=== PATIENT | female | born 1960 | race African-American/Black ===

== ENCOUNTER 2016-11-17 13:59 | Inpatient (IN) ==
[2016-11-17 15:09] LABS: BILIRUBIN URINE NEGATIVE (NEGATIVE); BLOOD URINE 2+ (NEGATIVE); CLARITY SL. CLOUDY (CLEAR); COLOR YELLOW; GLUCOSE URINE NEGATIVE (NEGATIVE); LEUKOCYTES URINE 1+ (NEGATIVE); NITRITE URINE NEGATIVE (NEGATIVE); PH URINE 6.5; PROTEIN URINE TRACE mg/dL (NEGATIVE); UROBILINOGEN URINE 4+(12 mg/dL)
[2016-11-17 15:29] LABS: URINE EPITHELIAL CELLS >10 /HPF (<10); URINE RBC <10 /HPF (<10); URINE WBC <10 /HPF (<10)
[2016-11-17 15:30] LABS: URINE CAST NONE SEEN /LPF; URINE CRYSTAL NONE SEEN /HPF; URINE CULTURE PL NEEDED? YES; URINE SOURCE CLEAN CATCH
--- NOTE | 2016-11-17 15:32 | Diag Imaging Result Doc PS360 ---
EXAM: CHEST-2 VIEWS - 11/17/2016 HISTORY: fever TECHNIQUE: Chest two views COMPARISON: 09/16/2015 FINDINGS: Heart size is normal. There is slight prominence of infrahilar markings on the left. There is no dense consolidation, pleural effusion, or pneumothorax identified. IMPRESSION: Slight prominence of infrahilar markings on the left. Minimal infiltrate at this location cannot be excluded. No other acute changes. Electronically signed by Karsten Choudhary 11/17/2016 3:29 PM
[2016-11-17 15:37] LABS: ALBUMIN 3.9 g/dL (3.5-5.0); CALCIUM 8.6 mg/dL (8.8-10.2); POTASSIUM 3.5 mmol/L (3.5-5.1); TOTAL BILIRUBIN 1.1 mg/dL (0.20-1.00); TOTAL PROTEIN 7.8 g/dL (6.3-8.3)
[2016-11-17 15:57] LABS: MANUAL DIFF NEEDED? NO
[2016-11-17 16:00] LABS: BASO% 0.1 % (0.0-0.8); EOS# 0.33 X1000 (0.0-0.7); HEMATOCRIT 36.6 % (37.0-47.0); HEMOGLOBIN 11.8 g/dL (12.0-16.0); IMM GRAN# 0.03 X1000 (0.0-0.04); IMM GRAN% 0.3 % (0.0-0.5); LYMPH# 1.66 X1000 (1.2-3.4); MCH 27.3 PG (27-31); MCHC 32.2 g/dL (33-37); MCV 84.7 FL (81-99); MONO% 5.4 % (1.7-9.3); MPV 12.3 FL (7.4-10.4); NEUT% 76.2 % (42.2-75.2); PLT 180 X1000 (130-400); RBC 4.32 XMIL (4.2-5.4)
[2016-11-17] MEDS ORDERED: DOXYCYCLINE 100 MG in NS 250 ML IV ONE (16:59)
--- NOTE | 2016-11-17 17:14 | PROVIDER DOCUMENTATION ---
This chart was entered by Alysia Santos Scribe, acting as scribe for Kim Sultana CRNP. HPI-Rash/Wound/ReCheck - General Chief Complaint: Return/Recheck Stated Complaint: INSECT BITE/STING Time Seen by Provider: 11/17/16 14:01 Source: patient Allergies/Adverse Reactions: Allergies Allergy/AdvReac Type Severity Reaction Status Date / Time Penicillins Allergy DIZZINESS Verified 09/04/15 06:58 Home Medications: Home Medication List Medication Instructions Recorded Confirmed Last Taken Type Sulfamethoxazole/Tmp D.s. [Sept 1 tab PO BID 11/17/16 11/17/16 Unknown History Ds] - History of Present Illness-Dermatology Nature of Presenting Problem: 56 yo F presents to the ER after being bit by a brown recluse spider on her stomach x2 days ago, was seen at [facility] and given Bactrim. Today went to her PCP and he advised her to come here because she now has an area of cellulitis to her R forearm, denies being bit there. Pt has taken 2 doses of Bactrim. Location: reports: upper extremity, torso Quality: reports: painful Onset/Duration: reports: 2 days ago Context/Associated Symptoms: reports: spider bite Identifiable cause?: Yes Recently seen or treated by another doctor?: Yes Review of Systems - Adult - REVIEW OF SYSTEMS - ADULT Constitutional: denies: chills, fever Eyes: reports: no symptoms reported Ears, Nose, Mouth & Throat: reports: no symptoms reported Cardiovascular: denies: chest pain, palpitations Respiratory: denies: cough, shortness of breath Gastrointestinal: denies: diarrhea, nausea, vomiting Genitourinary: reports: no symptoms reported Musculoskeletal: reports: no symptoms reported Integumentary: reports: see HPI. denies: itching Neurological: reports: no symptoms reported Psychiatric: reports: no symptoms reported Endocrine: reports: no symptoms reported Hematologic/Lymphatic: reports: no symptoms reported Allergic/Immunologic: reports: no symptoms reported All Other Systems: Reviewed and Negative Past History - Adult - PAST MEDICAL HISTORY-ADULT Review of Records: reports: Nursing Assessment Review, Medications Reviewed - IMMUNIZATION STATUS Childhood Immunizations: See Nurse Assessment Flu Vaccine: See Nurse Assessment Physical Exam-General - PHYSICAL EXAM-ADULT Initial Vital Signs Reviewed: Yes - CONSTITUTIONAL General Appearance: alert, no apparent distress - EYES Eyes: PERRL/EOMI, pink conjunctivae - HEAD, EARS, NOSE, MOUTH & THROAT HENMT: normocephalic/atraumatic, normal ENT inspection - NECK Neck: supple, normal inspection - RESPIRATORY Respiratory: no respiratory distress, no accessory muscle use - CARDIOVASCULAR Cardiovascular: normal peripheral pulses, regular rate, rhythm - MUSCULOSKELETAL Back Exam: no CVA tenderness, no vertebral tenderness Extremity: normal gait, normal inspection - SKIN Integumentary: warm/dry, erythema (R forearm, stomach where she was bit), tenderness (R forearm, stomach where she was bit), warm (R forearm, stomach where she was bit) - NEUROLOGIC Neurologic: grossly normal, no motor/sensory deficits - PSYCHIATRIC Psych/Mental Status: normal mood/affect, normal thought content, normal thought process, oriented x 3 Progress - PLAN OF CARE/RESULTS Progress/Plan/Lab Results: Vital Signs - 8 hr 11/17/16 14:05 Temperature 99 F Pulse Rate 91 H Respiratory Rate 18 Blood Pressure 126/79 O2 Sat by Pulse Oximetry 100 Laboratory Results - last 24 hr 11/17/16 11/17/16 11/17/16 14:55 15:00 15:53 WBC 11.08 H RBC 4.32 Hgb 11.8 L Hct 36.6 L MCV 84.7 MCH 27.3 MCHC 32.2 L RDW Std Deviation 13.9 Plt Count 180 MPV 12.3 H Immature Gran % (Auto) 0.3 Neut % (Auto) 76.2 H Lymph % (Auto) 15.0 L Bowman % (Auto) 5.4 Eos % (Auto) 3.0 Baso % (Auto) 0.1 Immature Gran # (Auto) 0.03 Neut # (Auto) 8.45 H Lymph # (Auto) 1.66 Bowman # (Auto) 0.60 H Eos # (Auto) 0.33 Baso # (Auto) 0.01 Sodium 134 L Potassium 3.5 Chloride 98 Carbon Dioxide 22 L Anion Gap 14 BUN 15 Creatinine 1.0 H Estimated GFR/1.73 m2 58 BUN/Creatinine Ratio 15 Glucose 93 Calculated Osmolality 269 Calcium 8.6 L Total Bilirubin 1.10 H AST 37 H ALT 28 Alkaline Phosphatase 168 H Total Protein 7.8 Albumin 3.9 Globulin 4.0 Albumin/Globulin Ratio 1.0 Plasma Lactate Urine Source CLEAN CATCH Urine Color YELLOW Urine Clarity SL. CLOUDY A Urine pH 6.5 Ur Specific [place] 1.020 Urine Protein TRACE A Urine Ketones TRACE Urine Blood 2+ A Urine Nitrite NEGATIVE Urine Bilirubin NEGATIVE Urine Urobilinogen 4+(12 mg/dL) Urine Microscopic RBC <10 Urine WBC 1+ A Urine Microscopic WBC <10 Ur Epithelial Cells >10 A Urine Crystals NONE SEEN Urine Bacteria 1+ Urine Casts NONE SEEN Urine Yeast NONE SEEN Urine Glucose NEGATIVE 11/17/16 15:53 WBC RBC Hgb Hct MCV MCH MCHC RDW Std Deviation Plt Count MPV Immature Gran % (Auto) Neut % (Auto) Lymph % (Auto) Bow[place] % (Auto) Eos % (Auto) Baso % (Auto) Immature Gran # (Auto) Neut # (Auto) Lymph # (Auto) Bowman # (Auto) Eos # (Auto) Baso # (Auto) Sodium Potassium Chloride Carbon Dioxide Anion Gap BUN Creatinine Estimated GFR/1.73 m2 BUN/Creatinine Ratio Glucose Calculated Osmolality Calcium Total Bilirubin AST ALT Alkaline Phosphatase Total Protein Albumin Globulin Albumin/Globulin Ratio Plasma Lactate 1.9 Urine Source Urine Color Urine Clarity Urine pH Ur Specific [place] Urine Protein Urine Ketones Urine Blood Urine Nitrite Urine Bilirubin Urine Urobilinogen Urine Microscopic RBC Urine WBC Urine Microscopic WBC Ur Epithelial Cells Urine Crystals Urine Bacteria Urine Casts Urine Yeast Urine Glucose Orders Category Date Time Status Admit - [facility] Routine AdmDCTranf 11/17/16 17:05 Ordered Activity - Up Ad Karoline ORDERED Care 11/17/16 17:05 Active Saline Loc NOW Care 11/17/16 14:34 Active Vital Signs Order ROUTINE Care 11/17/16 17:05 Active Regular Diet Diet 11/17/16 17:09 Active CHEST-2 VIEWS [RAD] Stat Exams 11/17/16 14:32 Completed BLOOD CULTURE [BLDCUL] Stat Lab 11/17/16 14:31 Ordered CBC WITH ELECTRONIC DIFF [HEME] Stat Lab 11/17/16 15:53 Completed COMPREHENSIVE METABOLIC PANEL [CHEM] Stat Lab 11/17/16 15:00 Completed LACTATE, PLASMA [CHEM] Stat Lab 11/17/16 15:53 Completed UA NIMS W/REFLEX CULT PL [URINALYSIS] Stat Lab 11/17/16 14:55 Completed URINE CULTURE [RM] Routine Lab 11/17/16 15:32 Ordered Doxycycline 100 mg Med 11/17/16 16:59 Active 0.9% Sodium Chloride Inj [Ns] 250 ml IV NOW Transfer/Admit Order [TRANSFER] Routine Transfer 11/17/16 17:10 Ordered Result Diagrams: 11/17/16 15:53 11/17/16 15:00 - XRAY 1 XRAY Study: Chest Impression: See EMR Report (slight prominence of infrahilar markings on the left. Minimal infiltrate at the location cannot be excluded. No other acute changes. Per radiologist) - CONSULTS/PCP/HOSPITALIST Notification #1 *Consult/PCP/Hospitalist*: Dr. Wolff Time Discussed: 17:00 Consult Disposition: Admit (cellulitis) Departure - Departure Date of Disposition Decision: 11/17/16 Time of Disposition Decision: 17:13 DIAGNOSIS: Cellulitis Qualifiers: Site of cellulitis: extremity Site of cellulitis of extremity: upper extremity Laterality: unspecified laterality Qualified Code(s): L03.119 - Cellulitis of unspecified part of limb Disposition: HOME 01 Certified Medical Emergency: Urgent Condition: Good Referrals and Follow-Ups: Princess Peralta MD [Primary Care Provider] - - Critical Care Note This patient required my direct & personal management of CC.: No Attestation - Physician/ SUSAN Attestation Patient care was provided by Advanced Practice Provider:: Yes Advanced Practice Provider:: Kim Sultana Advanced Practice Provider documentation review:: The Mid-level provider documentation, treatment plan and medical decision making was reviewed by the physician who agrees with all treatment and medical decision making by the MLP. The physician spent face to face time with patient:: Yes Advanced Practice Provider documentation review:: The physician spent face to face time with this patient and agrees with all MLP documentation, treatment, and medical decision making by the MLP. See provider notes for further information. This chart was documented by the indicated scribe, (Alysia Santos Scribe) and accurately reflects the services I performed and decisions made by me, Kim Sultana CRNP, as attested by the provider's signature.
[2016-11-17] MEDS ORDERED: TYLENOL PO PRN (19:26)
[2016-11-17] MEDS ORDERED: ZOFRAN IV PRN (19:26)
[2016-11-17] MEDS ORDERED: VANCOMYCIN IV PER PHARMACY MISC SCH (19:30)
[2016-11-17] MEDS: NS 1,000 ML IV SCH (20:19)
[2016-11-17] MEDS: VANCOMYCIN 1 GM/NS 1 GM/250 ML IVPB IV SCH (20:38)
[2016-11-17] MEDS: NORCO-5 PO PRN (20:38)
[2016-11-18] MEDS: VANCOMYCIN 1 GM/NS 1 GM/250 ML IVPB IV SCH (00:43)
[2016-11-18] MEDS: DOXYCYCLINE 100 MG in NS 250 ML IV SCH ×2 (05:25→18:09)
[2016-11-18] MEDS: NORCO-5 PO PRN ×3 (05:25→21:15)
[2016-11-18 07:42] LABS: HEMATOCRIT 32.5 % (37.0-47.0); HEMOGLOBIN 10.2 g/dL (12.0-16.0); MCH 26.7 PG (27-31); MCHC 31.4 g/dL (33-37); MCV 85.1 FL (81-99); MPV 13.1 FL (7.4-10.4); RBC 3.82 XMIL (4.2-5.4)
[2016-11-18 08:22] LABS: AGAP 13; ALBUMIN 3.4 g/dL (3.5-5.0); ALKALINE PHOSPHATASE 162 U/L (32-104); BUN 10 mg/dL (8-22); CALCIUM 8.2 mg/dL (8.8-10.2); CHLORIDE 104 mmol/L (98-107); COSMO 276; GOT 33 U/L (10-30); GPT 30 U/L (10-36); POTASSIUM 3.8 mmol/L (3.5-5.1); SODIUM 138 mmol/L (136-145); TCO2 21 mmol/L (25-35); TOTAL PROTEIN 6.2 g/dL (6.3-8.3)
--- NOTE | 2016-11-18 10:31 | PROGRESS NOTE ---
DATE: 11/18/2016 SUBJECTIVE: The patient notes that she is feeling a little bit better. She is still having swelling in her lower extremities. Denies any chest pains or palpitations. She has got a small blister on her upper abdomen. Notes the swelling in her right arm may be a little bit better. OBJECTIVE: Vital Signs: On physical exam, temp 98, pulse 85, blood pressure 99/47, satting 97% on room air. General: Patient is awake, alert. She is currently in no respiratory distress. She is pleasant to talk with. Speech is regular. Memory intact. Neck: Supple. CV: Regular rate. Chest: Relatively clear. Abdomen: Soft. Extremities: Moves all extremities. Skin: She is noted to have a small blister and small erythematous area in her right upper quadrant on her abdomen. She is having some redness from her right wrist to her right elbow; this appears to be less intensity and it is less warmth than it was last night. ASSESSMENT: 1. Insect bite with cellulitis. 2. Pain control. 3. Leukocytosis. 4. Hyponatremia, resolved. 5. Hyperbilirubinemia. PLAN: We will continue patient in the hospital. Continue IV antibiotics. Continue pain control. Further orders as needed. cc: Braulio Wolff MD
--- NOTE | 2016-11-18 10:35 | HISTORY AND PHYSICAL ---
PRIMARY CARE PHYSICIAN: Princess Peralta MD CHIEF COMPLAINT: Spider bite on her stomach 2 days ago and now with erythema to her right forearm. HISTORY OF PRESENTING ILLNESS: This is a 56-year-old female who states that she was bit by a brown recluse spider on her stomach 2 days ago. She went to [facility] and was started on Bactrim. She noticed that she had some redness to her right forearm, so she went to see her primary care physician yesterday who advised her to come to the emergency room for evaluation and treatment of a right forearm cellulitis. It is noted that she took 2 doses of her Bactrim prior to arrival. When she got here, she had a temperature of 99 degrees. White blood cells were 11.08. She was noted to have some erythema and warmth to her right upper abdomen and erythema, edema, and warmth to touch in her right forearm, so she was admitted for further evaluation and treatment. PAST MEDICAL HISTORY: Fibromyalgia. PAST SURGICAL HISTORY: Appendectomy, hysterectomy, bilateral rotator cuff surgery, cholecystectomy, and a left toe nail removal. FAMILY HISTORY: Noncontributory. SOCIAL HISTORY: She currently lives with family. Denied any tobacco, alcohol, or illicit drug use. ALLERGIES: Penicillin. HOME MEDICATIONS: She was only taking the Bactrim that was prescribed 2 days ago and that will be held. LABORATORY DATA: Showed a white blood cell count of 11.08, hemoglobin 11.8, hematocrit 36.6, platelets 180,000. Sodium 134, potassium 3.5, chloride 98, CO2 of 22, BUN of 15, creatinine of 1, glucose 93, total bilirubin of 1.1, AST of 37, ALT 28, alkaline phosphatase 168, plasma lactate of 1.9. Urinalysis was negative. REVIEW OF SYSTEMS: She was positive for a subjective fever, some mild chills. Denied any blurred vision, dizziness, chest pain, coughing, shortness of breath. She was positive for abdominal pain to the site where she was bit, erythema and edema to that area also and to her inner right forearm. Denied any nausea, vomiting, diarrhea, or burning or hurting with urination. PHYSICAL EXAMINATION: VITAL SIGNS: On arrival, she had a temperature of 99 degrees, pulse 91, respirations 18, blood pressure 126/79, saturating 100% on room air. GENERAL: This is a 56-year-old female who is lying in the bed and answers questions appropriately. HEENT: Normocephalic and atraumatic. Pupils are equal, round, reactive to light. Extraocular movements are intact. Oropharynx and nares are clear. NECK: Supple. LUNGS: Clear to auscultation bilaterally with equal lung expansion and chest wall movement. ABDOMEN: Soft. There is tenderness, warmth, and erythema to the right upper quadrant from her recent brown recluse spider bite. Bowel sounds are present x4 quadrants. EXTREMITIES: The patient was noted to have erythema, edema, and warmth to touch to her inner right forearm from the elbow to her wrist. Otherwise, no clubbing, cyanosis, or edema. NEUROLOGICAL: The cranial nerves 2 through 12 are grossly intact. ASSESSMENT: 1. Right upper quadrant abdomen spider bite. 2. Right forearm cellulitis. 3. Leukocytosis. 4. Fibromyalgia, history of. PLAN: She was admitted to the medical unit at [facility], placed on a regular diet. We obtained blood cultures x2, and they are pending. We are obtaining a urine culture. She was placed on doxycycline 100 mg IV every 12 hours, normal saline at 75 mL an hour, Zofran 4 mg IV every 4 hours p.r.n., vancomycin per pharmacy protocol, [place] 5 one p.o. every 4 hours p.r.n., and we will recheck a CBC and BMP in the a.m. Dictated by ADELSO Hernandez for Braulio Wolff MD cc: ADELSO Hernandez MD Bernice Swain, MD
[2016-11-18] MEDS: NS 1,000 ML IV SCH (14:27)
[2016-11-18] MEDS: VANCOMYCIN 1,900 MG in NS 500 ML IV SCH (20:24)
[2016-11-19] MEDS: DOXYCYCLINE 100 MG in NS 250 ML IV SCH ×2 (05:00→17:06)
[2016-11-19 06:20] LABS: MANUAL DIFF NEEDED? NO
[2016-11-19 06:32] LABS: BASO% 0.1 % (0.0-0.8); EOS# 0.38 X1000 (0.0-0.7); EOS% 4.2 % (0.0-10.0); HEMATOCRIT 30.6 % (37.0-47.0); HEMOGLOBIN 9.4 g/dL (12.0-16.0); IMM GRAN# 0.04 X1000 (0.0-0.04); IMM GRAN% 0.4 % (0.0-0.5); LYMPH# 1.48 X1000 (1.2-3.4); LYMPH% 16.3 % (20.5-51.1); MCH 26.3 PG (27-31); MCHC 30.7 g/dL (33-37); MCV 85.7 FL (81-99); MONO# 0.76 X1000 (0.11-0.59); MONO% 8.4 % (1.7-9.3); MPV 12.8 FL (7.4-10.4); NEUT% 70.6 % (42.2-75.2); PLT 170 X1000 (130-400); RBC 3.57 XMIL (4.2-5.4)
[2016-11-19 06:52] LABS: AGAP 11; BUN 8 mg/dL (8-22); CALCIUM 8.1 mg/dL (8.8-10.2); CHLORIDE 107 mmol/L (98-107); COSMO 278; POTASSIUM 3.6 mmol/L (3.5-5.1); SODIUM 140 mmol/L (136-145); TCO2 22 mmol/L (25-35)
[2016-11-19] MEDS: NS 1,000 ML IV SCH ×2 (09:05→21:26)
[2016-11-19] MEDS: NORCO-5 PO PRN (09:29)
[2016-11-19] MEDS: SOLU-MEDROL IV SCH ×2 (11:31→18:34)
[2016-11-19] MEDS: ROCEPHIN 1 GM/NS 1 GM/50 ML IVPB IV SCH (11:31)
--- NOTE | 2016-11-19 13:41 | Diag Imaging Result Doc PS360 ---
EXAM: SHOULDER-RIGHT HISTORY: pain TECHNIQUE: Three views including an axillary Y COMPARISON: 05/26/2014 FINDINGS: There has been prior surgery to the shoulder. No acute fracture or dislocation. No significant change in the appearance of the shoulder compared to the prior exam. IMPRESSION: Stable shoulder. Electronically signed by Elias Lamar 11/19/2016 1:38 PM
[2016-11-19] MEDS: VANCOMYCIN 1,900 MG in NS 500 ML IV SCH (21:26)
[2016-11-20] MEDS: SOLU-MEDROL IV SCH ×2 (02:21→10:25)
[2016-11-20] MEDS: DOXYCYCLINE 100 MG in NS 250 ML IV SCH (04:41)
[2016-11-20] MEDS: NS 1,000 ML IV SCH (04:42)
[2016-11-20] MEDS: ROCEPHIN 1 GM/NS 1 GM/50 ML IVPB IV SCH (10:25)
[2016-11-20] MEDS ORDERED: AZACTAM 2 GM in NS 100 ML IV SCH (13:00)
[2016-11-20] MEDS: D5W 1,000 ML IV SCH (13:58)
[2016-11-20] MEDS: LEVAQUIN PO SCH (13:58)
--- NOTE | 2016-11-20 14:32 | PROGRESS NOTE ---
DATE: 11/20/2016 SUBJECTIVE: Patient notes that she is feeling a little bit better. She is still having some shoulder pain on the right. Still having redness that appears to be now on her left arm, as well as her right abdomen hurts but is actually improved from yesterday. OBJECTIVE: Vital signs: Temperature 98, pulse 88, respiratory rate 18, BP 121/55, saturation 100% on room air. General: Patient is awake, alert, oriented. She is currently in no real respiratory distress. She is pleasant to talk with. Speech is regular. Memory is intact. Neck: Supple. CV: Regular rate. Chest: Relatively clear. Abdomen: Soft. Extremities: Moves all extremities. Neurologic: No changes. LABS: She had no labs today. ASSESSMENT: 1. Right upper quadrant abdominal area with insect bite, likely from a spider. She is noted to have some blistering over the area but no eschar. The redness is actually less. 2. Right forearm and left forearm cellulitis. No change. 3. Right shoulder pain. Improved with Solu-Medrol. 4. Leukocytosis. 5. Fibromyalgia. PLAN: The patient currently is on doxycycline, Rocephin, and vancomycin IV. We did start Solu- Medrol yesterday to see if this would help. Her itching is somewhat better, although comes back between the doses of Solu-Medrol. We will ask Dr. Duarte for further instructions. cc: Braulio Wolff MD
--- NOTE | 2016-11-20 17:53 | CONSULTATION ---
DATE OF CONSULTATION: 11/20/2016 CONCLUSION: The patient had a spider bite to the right lower part of her abdomen. This has resulted in cellulitis. She also has a petechial rash. I think this is secondary to the spider bite and is not being caused by medication because the rash started before she got any antibiotics. The patient also has edema and I think this is due to the fact that she is getting IV saline and also a lot of fluids for the different antibiotics that she is on. RECOMMENDATIONS: I have discontinued Rocephin and doxycycline. I agree with vancomycin and to this I have added p.o. Levaquin. Also I have changed the patient's IV fluid to [id number] TKO. DISCUSSION: The patient was bitten by a brown recluse spider bite approximately 5 days ago. That area has become erythematous and where the bite occurred the patient has some vesicles. Some of these appear to be getting very dark. Approximately a day later the patient noticed that she had a red rash on her right arm. She was seen by a physician and started on Septra but clearly the rash on her arm was present before she was started on Septra. She also developed fever and chills. The fever and chills have for the most part cleared. She does have some generalized itching however. Approximately 3 days ago she developed a similar red petechial rash on both legs. She has also has a cough which is nonproductive. She is complaining of myalgias and arthralgias and she has also complained of generalized swelling. The patient's laboratory studies show a CBC with a white count of 9060, hemoglobin 9.4 and platelet count 170, 000. Creatinine 0.6. The patient's chest x-ray shows a slight prominence of infrahilar markings on the left and minimal infiltrate at this location could not be excluded. PRESENT ILLNESS: Patient also has noticed some myalgias and arthralgias which gradually are getting better. PAST MEDICAL HISTORY/REVIEW OF SYSTEMS: Constitutional: Patient wears glasses. She feels her hearing is normal. Neck: No stiffness. Respiratory: Patient had a slight cough after she had the spider bite but that has cleared in the past day. Cardiovascular: No chest pain or palpitations. GI: The patient has not had a stool in 3-4 days. She is not having nausea or vomiting. Bones, joints, muscles: She is having some myalgias and arthralgias with her present illness. Endocrine: She does not have diabetes or thyroid disease. Bones, joints, muscles: See present illness where I described about myalgias and arthralgias. Neurologic: She is not having any syncopal episodes or seizures. She does not have any motor or sensory loss. Integument: She does have rashes as described in the present illness. The remainder of the patient's review of systems was completed and was negative. TECHNICIAN AUTOMATIC HISTORY: She is a 3, para 2, AB 1. She has had a hysterectomy. PREVIOUS HOSPITALIZATIONS AND OPERATIONS: She has had labor and deliveries, a miscarriage, hysterectomy, appendectomy, cholecystectomy, bilateral rotator cuff surgery and removal of the right ovary. She has also had surgery on her left toe. MEDICAL DISEASES: Positive for hyperlipidemia and a right renal cyst. Negative for diabetes or seizures. INFECTIOUS DISEASE HISTORY: Positive for UTI. Negative for pneumonia. FAMILY HISTORY: Positive for diabetes mellitus, hypertension, congestive heart failure, myocardial infarction, stroke, cancer, rheumatoid arthritis and systemic lupus. SOCIAL HISTORY: [place] She is allergic to penicillin manifested by an altered mental status. She works at the [employer]. MEDICATION: The only medication she was taking at home is Septra. She was on a medicine for hyperlipidemia but it has been stopped and she is going to be switched to another 1. PHYSICAL EXAMINATION: Vital signs: Temperature is 98.3, pulse 79, respirations 18, blood pressure 125/63. Patient is 5 feet 4 inches tall, weighs 187 pounds. Generally : This is a fairly healthy-appearing middle-aged female. She is in no acute distress. Head , eyes, ears, nose, and throat: She can hear my spoken words and see near objects. There was no white coating on her tongue. Neck: No meningismus. Thorax: No increased AP diameter. Lungs: Clear to auscultation. Cardiovascular: The patient does have edema in the legs. Peripheral pulses are palpable. Heart rate was regular. I did not hear a murmur. Abdomen: Soft and nontender. Neurologic: Patient is alert. She can move her extremities. There is no tremor. Her sensation was intact to touch, she can move all of her extremities. There is no tremor. Integument: On the right part of the abdomen there is erythema and few vesicular lesions which are turning black. The patient has a diffuse petechial rash also. Abdomen: Soft and nontender. There is erythema in the right lower quadrant with some vesicular lesions which were turning dark. Thank you for the consult. cc: Luis Duarte MD MTDD
[2016-11-20] MEDS ORDERED: SOLU-MEDROL ONE (20:52)
[2016-11-20] MEDS: VANCOMYCIN 1,900 MG in NS 500 ML IV SCH (21:02)
[2016-11-20] MEDS ORDERED: SOLU-MEDROL IV SCH (22:00)
[2016-11-21 06:35] LABS: HEMATOCRIT 29.3 % (37.0-47.0); HEMOGLOBIN 9.4 g/dL (12.0-16.0); MCH 27.2 PG (27-31); MCHC 32.1 g/dL (33-37); MCV 84.9 FL (81-99); MPV 12.8 FL (7.4-10.4); RBC 3.45 XMIL (4.2-5.4)
[2016-11-21 06:54] LABS: AGAP 14; ALBUMIN 3.4 g/dL (3.5-5.0); ALKALINE PHOSPHATASE 180 U/L (32-104); BUN 14 mg/dL (8-22); CALCIUM 8.5 mg/dL (8.8-10.2); CHLORIDE 104 mmol/L (98-107); COSMO 284; GOT 18 U/L (10-30); GPT 42 U/L (10-36); POTASSIUM 3.5 mmol/L (3.5-5.1); SODIUM 141 mmol/L (136-145); TCO2 23 mmol/L (25-35); TOTAL PROTEIN 6.3 g/dL (6.3-8.3)
--- NOTE | 2016-11-21 08:15 | PROGRESS NOTE ---
DATE: 11/21/2016 SUBJECTIVE: Patient notes that the rash on her left arm, back, and abdomen and legs seems to have worsened over the past few days. Still has a rash on her right forearm that she came in the hospital with, as well as over her right side of her abdomen. OBJECTIVE: Vital Signs: Temperature 98, pulse 63, respiratory 16, BP 146/62, saturation 100% on room air. General: Patient is awake, alert, pleasant to talk with female who is currently in no respiratory distress. Speech is regular. Memory intact. Neck: Supple. CV: Regular rate. Chest: Clear. Abdomen: Soft. Skin: She is noted to have a worsening petechial rash over most of her body. She still has a confluent rash over her right forearm that is not really changed since admission. The area of her right upper quadrant on her abdomen which is where she was bit by the insect, likely spider, has a little bit less erythema, has slightly enlarged blackened area but otherwise is unchanged. DIAGNOSTIC DATA: WBCs 24, hemoglobin and hematocrit 9 and 29. CMP essentially normal. ASSESSMENT: 1. Leukocytosis. The patient has recently been on steroids secondary to her right shoulder pain as well as to assist with the rash. The leukocytosis is likely secondary to this. We will stop her Solu-Medrol this morning. 2. Petechial rash. Dr. Duarte changed her antibiotics yesterday but she remained on vancomycin which is the only thing she has been on since the petechial rash has worsened. We will discuss with Dr. Duarte the ability to change this to something else. 3. Insect bite with infection. She currently is on Levaquin and vancomycin. We will certainly continue Levaquin as this was just started yesterday after the rash had begun. PLAN: As noted, hopefully change vancomycin, hopefully home soon. We will continue to follow. cc: Braulio Wolff MD
[2016-11-21] MEDS: LEVAQUIN PO SCH (09:05)
[2016-11-21] MEDS ORDERED: SODIUM CHLORIDE 0.9% INJ SCH (10:30)
[2016-11-21] MEDS: PREDNISONE PO SCH (11:01)
[2016-11-21] MEDS: PEPCID IV SCH ×2 (11:02→23:09)
[2016-11-21] MEDS: BENADRYL IV PRN ×2 (11:02→20:59)
[2016-11-21] MEDS: VANCOMYCIN 1,700 MG in NS 250 ML IV SCH ×2 (11:48→20:59)
[2016-11-22] MEDS: BENADRYL IV PRN (04:00)
[2016-11-22 05:56] LABS: HEMATOCRIT 27.1 % (37.0-47.0); HEMOGLOBIN 8.3 g/dL (12.0-16.0); MCH 26.3 PG (27-31); MCHC 30.6 g/dL (33-37); MCV 85.8 FL (81-99); MPV 12.4 FL (7.4-10.4); RBC 3.16 XMIL (4.2-5.4)
[2016-11-22 06:18] LABS: AGAP 11; ALBUMIN 2.9 g/dL (3.5-5.0); ALKALINE PHOSPHATASE 151 U/L (32-104); BUN 14 mg/dL (8-22); CALCIUM 7.7 mg/dL (8.8-10.2); CHLORIDE 96 mmol/L (98-107); COSMO 277; GOT 16 U/L (10-30); GPT 35 U/L (10-36); POTASSIUM 2.8 mmol/L (3.5-5.1); SODIUM 131 mmol/L (136-145); TCO2 24 mmol/L (25-35); TOTAL PROTEIN 5.5 g/dL (6.3-8.3)
[2016-11-22] MEDS: D5W 1,000 ML IV SCH (06:53)
[2016-11-22] MEDS: KLOR-CON PO ONE ×2 (06:54→07:15)
[2016-11-22] MEDS: HUMALOG DOSE (PARKWAY) SUBQ SCH ×4 (06:54→22:44)
[2016-11-22 08:56] LABS: AGAP 13; ALBUMIN 3.3 g/dL (3.5-5.0); ALKALINE PHOSPHATASE 171 U/L (32-104); BUN 12 mg/dL (8-22); CALCIUM 8.3 mg/dL (8.8-10.2); CHLORIDE 101 mmol/L (98-107); COSMO 275; GOT 20 U/L (10-30); GPT 40 U/L (10-36); SODIUM 138 mmol/L (136-145); TCO2 25 mmol/L (25-35); TOTAL PROTEIN 6.7 g/dL (6.3-8.3)
[2016-11-22] MEDS ORDERED: PREDNISONE PO SCH (09:00)
--- NOTE | 2016-11-22 09:07 | PROGRESS NOTE ---
DATE: 11/22/2016 SUBJECTIVE: Patient noted that she had an increase in her rash and itching last night after vancomycin. Denies any other current symptoms. OBJECTIVE: Vital signs: Temperature 98, pulse 65, respiratory rate 18, BP 163/64. General: Patient is awake, alert. She is currently in no real respiratory distress. Speech is regular. Memory is intact. Neck: Supple. CV: Regular rate. Chest: Clear. Abdomen: Soft. Extremities: Moves all extremities. Neurologic: No changes. Skin: She is still noted to have a deep, erythematous area on her right forearm. Her petechial rash actually appeared to worsen last night per the staff's note after she received vancomycin. It is slightly improved this morning. ASSESSMENT: 1. Petechial rashes. At this point I think the rash may be coming from her vancomycin. Will discuss with Dr. Duarte the possibilities of stopping this and changing to something else. 2. Insect bite with cellulitis, stable. Patient certainly may be able to discharge home from that standpoint. 3. Leukocytosis. Improved after stopping her IV Solu-Medrol. PLAN: Patient's labs this morning were off. Her blood sugar on the lab was 348 but checked in the room was 83. Her potassium was 2.8. We will repeat her CMP before treating. cc: Braulio Wolff MD
[2016-11-22] MEDS ORDERED: KLOR-CON PO ONE (09:55)
[2016-11-22] MEDS: PEPCID IV SCH (10:38)
[2016-11-22] MEDS: PREDNISONE PO SCH (10:38)
[2016-11-22] MEDS: LEVAQUIN PO SCH (10:38)
[2016-11-22] MEDS: VANCOMYCIN 1,700 MG in NS 250 ML IV SCH (10:39)
--- NOTE | 2016-11-22 13:31 | PROGRESS NOTE ---
DATE: 11/22/2016 SUBJECTIVE: The patient's rash is no worse and also her abdominal area where she had cellulitis is no worse. Dr. Wolff thinks that the patient may have an additional rash due to vancomycin. The plan is to send the patient home on doxycycline and Levaquin and steroids. The patient will be seen in my office in 2 weeks. cc: Luis Duarte MD MTDIrineo
[2016-11-22] MEDS: BENADRYL PO SCH ×2 (14:50→22:44)
[2016-11-22] MEDS ORDERED: DOXYCYCLINE PO SCH (21:00)
[2016-11-22] MEDS: PEPCID PO SCH (22:44)
[2016-11-23] MEDS: BENADRYL PO SCH (06:11)
[2016-11-23] MEDS: PREDNISONE PO SCH (08:56)
[2016-11-23] MEDS: PEPCID PO SCH (08:56)
[2016-11-23] MEDS: LEVAQUIN PO SCH (08:56)
[2016-11-23 13:24] VITALS: BP 141/58
--- NOTE | 2016-11-23 13:41 | DISCHARGE SUMMARY ---
ADMISSION DATE: 11/17/2016 DISCHARGE DATE: 11/23/2016 DIAGNOSES: 1. Right upper quadrant abdomen spider bite. 2. Right forearm cellulitis. 3. Leukocytosis. 4. Petechial rashes. DIAGNOSTICS: 11/17/2016 chest x-ray revealed heart size is normal. Slight prominence of the infrahilar markings on the left. No dense consolidation, pleural effusion or pneumothorax identified. MICROBIOLOGY: Blood cultures x2 revealed no growth after 5 days. Urine culture revealed no pathogenic growth. HOSPITAL COURSE: Ms. Neri presented to the emergency room complaining of insect bite to her right upper quadrant 2 days prior to admission that has had an increase in erythema, in edema and pain. She is also noted to have cellulitis in her right forearm. This did appear after her 2nd dose of Bactrim. She was initially treated with vancomycin and doxycycline. She developed a petechial rash to her body during the night of the with itching. At this time we did consult with Dr. Duarte who discontinued Rocephin and doxycycline. He did not feel that vancomycin could be causing this rash. He did add Levaquin. Over the next 24 hours the patient's rash increased with an increase in itching therefore vancomycin was discontinued and over 24 hours following this, her rash did start to dissipate, itching did get some better. Cellulitis rash to her right forearm that was present on admission has decreased also. She was given steroids as well as Benadryl. White count increased to 24.9 after steroids were begun. The dose was decreased and the white count did drop to 14. We did monitor electrolytes and replete as appropriate. Thankfully she is improved and is ready for discharge. DISCHARGE PHYSICAL EXAMINATION: Cardiovascular: Regular rate and rhythm. S1 and S2 appreciated. Pulmonary: Breath sounds are clear. No increased work of breathing noted. Gastrointestinal: Abdomen is soft, tender at the right upper quadrant around the area of the insect bite. Nondistended with bowel sounds in all 4 quadrants. Extremities: No clubbing, cyanosis, or edema. Calves are nontender. Pulses are palpable x4. Skin: Warm and dry with a petechial rash noted to the body that is much better today than over the last 24 hours. DISCHARGE MEDICATIONS: 1. Medrol Dosepak as directed. 2. Levaquin 500 mg daily for 2 weeks. 3. Pepcid 20 mg b.i.d.. FOLLOWUP: She is to follow up with Dr. Luis Duarte in 2 weeks. She has been instructed to call sooner for temperature greater than 101, a return or increase in this petechial rash, any increase in size, drainage, color or concerns regarding the wound to the right upper quadrant or for any questions or concerns that she may have. She is being discharged home in stable condition with family members. TIME SPENT: This is a greater than 30 minute discharge from 12:30 to 1:05. Dictated by ADELSO Gregorio for Braulio Wolff MD cc: ADELSO Gregorio MD
== END 2016-11-23 16:00 | disposition home or self-care (01) ==
LOC: P.MEDSURG 13:59 → P.ED 13:59 → OBSVTOIN 14:00 → P.MEDSURG 18:18
PROVIDERS: ATTEND Family Medicine